=== PATIENT | female | born 1995 | race Caucasian/White ===

== ENCOUNTER 2019-06-26 22:21 | Emergency (ER) | payer OTHER ==
[2019-06-26 22:48] LABS: BILIRUBIN,URINE NEGATIVE (NEGATIVE); GLUCOSE, URINE (UA) NEGATIVE (NEGATIVE); KETONES,URINE (UA) NEGATIVE (NEGATIVE); LEUKOCYTE ESTERASE, URINE NEGATIVE (NEGATIVE); NITRITE,URINE NEGATIVE (NEGATIVE); OCCULT BLOOD,URINE NEGATIVE (NEGATIVE); PH,URINE 5.5 PH (5.0-7.5); PROTEIN,URINE NEGATIVE (NEGATIVE); UROBILINOGEN,URINE 0.2 (NORMAL) E.U./dL (NORMAL)
[2019-06-26 22:50] LABS: CLARITY,URINE CLEAR (CLEAR)
[2019-06-26 22:51] LABS: HCG UR QUAL NEGATIVE
--- NOTE | 2019-06-26 23:11 | ED Physician Documentation ---
PD HPI ABD PAIN - Stated complaint Stated Complaint: RT SIDE PX - Chief complaint Chief Complaint: Abd Pain - History obtained from History obtained from: Patient - History of Present Illness Timing - onset: How many weeks ago (1) Timing - details: Gradual onset, Intermittant, Waxing and waning Pain level now: 6 Quality: Pain Location: RUQ, Epigastric Radiation: Other (no radiation) Improved by: Other (nothing) Worsened by: Eating Associated symptoms: Nausea. No: Fever, Vomiting, Diarrhea, Constipation Similar symptoms before: Has not had sx before Recently seen: Not recently seen Review of Systems Constitutional: reports: Reviewed and negative Cardiac: reports: Reviewed and negative Respiratory: reports: Reviewed and negative GI: reports: Abdominal Pain, Nausea. denies: Vomiting, Constipation, Diarrhea : denies: Dysuria, Frequency, Now EGA Skin: denies: Rash Musculoskeletal: denies: Back pain PD PAST MEDICAL HISTORY - Past Medical History Past Medical History: No - Present Medications Home Medications: Ambulatory Orders Medication Instructions Recorded Confirmed Tramadol HCl 50 - 100 mg PO Q6HR PRN #20 tablet 06/27/19 - Allergies Allergies/Adverse Reactions: Allergies Allergy/AdvReac Type Severity Reaction Status Date / Time bromocriptine Allergy Anaphylaxis Verified 06/26/19 22:27 - Living Situation Living Situation: reports: With family Living Arrangement: reports: At home - Social History Does the pt smoke?: No PD ED PE NORMAL - Vitals Vital signs reviewed: Yes - General General: Alert and oriented X 3, No acute distress, Well developed/nourished - HEENT HEENT: Moist mucous membranes - Neck Neck: Supple, no meningeal sign - Cardiac Cardiac: RRR, No murmur, No gallop, No rub - Respiratory Respiratory: No respiratory distress, Clear bilaterally - Abdomen Abdomen: Soft, Non distended - Back Back: No CVA TTP - Derm Derm: Normal color, Warm and dry, No rash PD ED PE EXPANDED - Abdomen Abdomen: Tender to palpation (mild RUQ without guarding or rebound), Other (negative Milner sign) Results - Vitals Vitals: Oxygen O2 Source Room air - Labs Labs: Laboratory Tests 06/26/19 06/26/19 06/26/19 22:41 22:41 23:30 WBC 9.1 RBC 4.53 Hgb 13.3 Hct 39.1 MCV 86.3 MCH 29.4 MCHC 34.0 RDW 13.4 Plt Count 318 MPV 8.8 Neut # (Auto) 5.1 Lymph # (Auto) 3.2 Mellette # (Auto) 0.6 Eos # (Auto) 0.1 Baso # (Auto) 0.0 Absolute Nucleated RBC 0.00 Nucleated RBC % 0.0 Sodium Potassium Chloride Carbon Dioxide Anion Gap BUN Creatinine Estimated GFR (MDRD) Glucose Calcium Total Bilirubin AST ALT Alkaline Phosphatase Total Protein Albumin Globulin Albumin/Globulin Ratio Lipase Urine Color YELLOW Urine Clarity CLEAR Urine pH 5.5 Ur Specific Orient >=1.030 H >=1.030 H Urine Protein NEGATIVE Urine Glucose (UA) NEGATIVE Urine Ketones NEGATIVE Urine Occult Blood NEGATIVE Urine Nitrite NEGATIVE Urine Bilirubin NEGATIVE Urine Urobilinogen 0.2 (NORMAL) Ur Leukocyte Esterase NEGATIVE Ur Microscopic Review NOT INDICATED Urine Culture Comments NOT INDICATED Urine HCG, Qual NEGATIVE 06/26/19 23:30 WBC RBC Hgb Hct MCV MCH MCHC RDW Plt Count MPV Neut # (Auto) Lymph # (Auto) Mellette # (Auto) Eos # (Auto) Baso # (Auto) Absolute Nucleated RBC Nucleated RBC % Sodium 138 Potassium 3.5 Chloride 106 Carbon Dioxide 20 L Anion Gap 12.0 BUN 17 Creatinine 0.7 Estimated GFR (MDRD) 101 Glucose 98 Calcium 9.4 Total Bilirubin 0.2 AST 18 ALT 21 Alkaline Phosphatase 48 Total Protein 8.2 Albumin 4.0 Globulin 4.2 Albumin/Globulin Ratio 1.0 Lipase 43 Urine Color Urine Clarity Urine pH Ur Specific Orient Urine Protein Urine Glucose (UA) Urine Ketones Urine Occult Blood Urine Nitrite Urine Bilirubin Urine Urobilinogen Ur Leukocyte Esterase Ur Microscopic Review Urine Culture Comments Urine HCG, Qual PD MEDICAL DECISION MAKING - ED course Complexity details: reviewed results, re-evaluated patient, considered differential, d/w patient ED course: minimal tenderness on exam, limited to RUQ and epigastrium. bedside US performed by me does not show evidence of obstruction. GB visualized and is small, no calculus seen. I explained to her that my skills using US specifically for gallbladder problems such as gallstones are limited, but that her exam, lab work, and level of discomfort do no indicate an emergent US at this time, as the result would not change immediate management. I thus instructed her to f/u with her doctor, and return if worse in any way so that she can be reassessed for possible further testing Departure - Departure Disposition: Home, Self Care Clinical Impression: Abdominal pain Condition: Good Instructions: ED Abdominal Pain Unkn Cause Follow-Up: SNOW HAMPTON ARNP [Primary Care Provider] - Prescriptions: Tramadol HCl 50 - 100 mg PO Q6HR PRN #20 tablet PRN Reason: Pain Discharge Date/Time: 06/27/19 00:46
[2019-06-26 23:39] LABS: BASOPHILS % (AUTO) 0.4 %; EOSINOPHILS # (AUTO) 0.1 10^3/uL (0.0-0.7); EOSINOPHILS % (AUTO) 1.2 %; HGB - HEMOGLOBIN 13.3 g/dL (12.0-16.0); LYMPHOCYTES # (AUTO) 3.2 10^3/uL (1.5-3.5); LYMPHOCYTES % (AUTO) 34.9 %; MEAN CORPUSCULAR HEMOGLOBIN 29.4 pg (27.0-31.0); MEAN CORPUSCULAR VOLUME 86.3 fL (81.0-99.0); MEAN PLATELET VOLUME 8.8 fL (7.9-10.8); MONOCYTES # (AUTO) 0.6 10^3/uL (0.0-1.0); MONOCYTES % (AUTO) 6.7 %; NEUTROPHILS # (AUTO) 5.1 10^3/uL (1.5-6.6); NEUTROPHILS % (AUTO) 56.6 %; PLT - PLATELET COUNT 318 10^3/uL (130-450); RED BLOOD COUNT 4.53 10^6/uL (4.20-5.40); RED CELL DISTRIBUTION WIDTH 13.4 % (12.0-15.0); WHITE BLOOD COUNT 9.1 x10^3/uL (4.8-10.8)
[2019-06-26 23:53] LABS: BILIRUBIN,TOTAL 0.2 mg/dL (0.2-1.0); CALCIUM 9.4 mg/dL (8.5-10.3); CREATININE 0.7 mg/dL (0.4-1.0); TOTAL PROTEIN 8.2 g/dL (6.7-8.2)
[2019-06-27] MEDS ORDERED: traMADol 50 MG TABLET PO STA (00:31)
[2019-06-27 00:46] VITALS: BP 123/82
== END 2019-06-27 00:46 | disposition home or self-care (01) ==
LOC: ED 22:21
DX: R10.11 Right upper quadrant pain (principal)
CPT/HCPCS: 36415; 80053; 81003; 81025; 83690; 85025; 99283; 99284; A9270; 81001; 87086